=== PATIENT | male | born 1965 | race Caucasian/White ===

== ENCOUNTER 2018-12-03 10:58 | Day surgery (SDC) | payer BC ==
[2018-12-03] MEDS ORDERED: BUPIVACA 0.5%/EPI 0.0005%/PF 10 ML VIAL ONE (11:17)
[2018-12-03] MEDS ORDERED: Ringers Lactate 1,000 ML IV ONE (11:25)
[2018-12-03] MEDS ORDERED: CEFAZOLIN/SWI 1gm 1 GM/10 ML SYR ONE (11:25)
[2018-12-03] MEDS ORDERED: LIDOCAINE 1% MPF 5 ML VIAL ONE (11:46)
[2018-12-03] MEDS ORDERED: MIDAZOLAM HCL 2 MG/2 ML INJ ONE (11:46)
[2018-12-03] MEDS ORDERED: PROPOFOL 200 MG/20 ML VIAL IV ONE (11:46)
[2018-12-03] MEDS ORDERED: FENTANYL CITR 100 MCG/2 ML ONE (11:46)
[2018-12-03] MEDS ORDERED: NS 0.9% VIAL 10 ML ONE (12:13)
[2018-12-03] MEDS ORDERED: CEFAZOLIN SODIUM 1 GM/VIAL ONE (12:13)
[2018-12-03] MEDS ORDERED: KETOROLAC 30 MG/ML INJ ONE (12:16)
--- NOTE | 2018-12-03 12:25 | P.OP ---
Preoperative diagnosis: Abdominal Wound from Dog Bite Postoperative diagnosis: Abdominal Wound from Dog Bite Primary procedure: Excision and Debridement of Abdominal Wound from Dog Bite Anesthesia: GETA + Local Estimated blood loss: <5cc Specimen: Cultures, debridement tissue Findings: ~6cm infected tissue to fascia Complications: None Transferred to: Recovery Room Condition: Good
[2018-12-03] MEDS ORDERED: ONDANSETRON 4 MG/2 ML VIAL ONE (12:34)
--- NOTE | 2018-12-04 06:27 | OP ---
Date of Procedure: 12/03/2018 Surgeon: Danny Chang MD, Preoperative Diagnosis: Abdominal wound from dog bite. Postoperative Diagnosis: Abdominal wound from dog bite. Procedure Performed: Incision and debridement of the abdominal wound from dog bite. Anesthesia: General endotracheal plus local with 0.5% Marcaine with epinephrine. Estimated Blood Loss: Less than 5 cc. Specimen: Cultures and debridement tissue. Findings: Approximately 6 cm infected tissue extending to the fascia in the main wound to the right of midline. An additional puncture lu had approximately 2 cm area of infected tissue. The culture s were taken and necrotic tissue sent. Complications: None. Disposition: Transferred to recovery room in good condition. Procedure In Detail: After informed consent was obtained, the patient was brought to the operating r oom, prepped and draped in the usual sterile fashion. After adequate anesthesia was achieved, an ell ipse of necrotic tissue was taken out overlying the right abdominal wound. There were 2 puncture sit es. This was the most lateral. This was circumferentially dissected out until all necrotic tissue w as debrided, and it was tracking for approximately 6 cm x 4 cm area extending to the fascia of the ab dominal wall. This was completely cleaned out and unroofed and marsupialized until completely clear. Hemostasis was easily achieved with electrocautery. Cultures were sent at this time for speciation . Both aerobic and anaerobic debridement tissue was sent as well. The area was copiously irrigated until completely clear and then packed with half-inch plain packing. Sterile dressing was placed ove rtop. The additional second puncture site was also much smaller approximately 2 to 3 cm in size. An ellipse of skin was taken out in this area and debridement extended down to the subcutaneous fat. T his was also similarly cleaned out, and all debridement tissue was removed until good bleeding tissue remained. Hemostasis was easily achieved with electrocautery. The area was copiously irrigated unt il completely clear, and this also was once again packed with half-inch plain packing. A sterile kourtney ssing was placed overtop. The patient tolerated the procedure well without evidence of complications and was transferred to the PACU in good condition. All counts were correct at the end of the case. MATT/RENEA Voice ID: [id number] Report ID: [id number]
== END 2018-12-03 14:08 | disposition home or self-care (01) ==
LOC: OR 10:58
PROVIDERS: ATTEND Surgery
PROC: 0JB80ZX Excision of Abdomen Subcutaneous Tissue and Fascia, Open Approach, Diagnostic (ICD-10-PCS; principal; 2018-12-03 12:00)
DX: S31.153A Open bite of abdominal wall, right lower quadrant without penetration into peritoneal cavity, initial encounter (principal); L03.311 Cellulitis of abdominal wall; L02.211 Cutaneous abscess of abdominal wall; W54.0XXA Bitten by dog, initial encounter; Y92.009 Unspecified place in unspecified non-institutional (private) residence as the place of occurrence of the external cause
CPT/HCPCS: 87070; 87075; 87077; 87186; 87205; 88304; 88305; J0690; J2250; J2405; J2704; J3010